=== PATIENT | male | born 1945 | race Caucasian/White ===

== ENCOUNTER 2019-05-21 16:50 | Emergency (ER) | payer MEDICARE, OTHER ==
[2019-05-21 17:07] VITALS: BP 184/77; PULSE 91
[2019-05-21] MEDS ORDERED: Ondansetron 4 MG Tab.DIS PO ONE (17:11)
[2019-05-21] MEDS ORDERED: Sodium Chloride 0.9% 10 ML Syringe FLUSH PRN (17:17)
[2019-05-21] MEDS ORDERED: Sodium Chloride 0.9% 1,000 ML IV SCH (17:30)
--- NOTE | 2019-05-21 17:37 | EDM.PDOC ---
ED HPI GENERAL MEDICAL PROBLEM - General Chief Complaint: Abdominal Pain Stated Complaint: CONSTIPATION Time Seen by Provider: 05/21/19 17:04 Source of Information: Reports: Patient, RN Notes Reviewed History Limitations: Reports: No Limitations - History of Present Illness INITIAL COMMENTS - FREE TEXT/NARRATIVE: Patient is a 73-year-old male who presents to the ED for the evaluation of his constipation. The patient states that he had a prophylactic circumcision done on May 12, done by Dr. Man, urologist at [facility], and has been taking hydrocodone/acetaminophen for the pain. The patient notes that he has not been taking the medication for around the past 4 to 5 days, as he has had some nausea and vomiting when he tries to eat or drink much of anything. Patient notes that because of this he has not really eaten or drank much over the last few days. He states that roughly 2 days into his postop recovery, he started developing symptoms of constipation. He states that he has to strain really hard to get any sort of bowel movement, but he does not have not much for a bowel movement. He states that he has not had a real good bowel movement in last 10 days. He states that he is still able to pass gas. He is not complaining of any fevers or chills, or redness at the site. He states that he is dribbling urine a little bit since the surgery as well. He is not complaining of any focal abdominal pain. Lower Abdominal Pain Score (Numeric/FACES): 5 - Related Data Allergies Allergy/AdvReac Type Severity Reaction Status Date / Time shellfish derived Allergy Nausea Verified 05/21/19 17:08 Home Meds: Home Meds Acetaminophen/HYDROcodone [[place] 325-5 MG] 1 - 2 tab PO Q6HR 05/21/19 [History] Lisinopril [Zestril] 40 mg PO DAILY 05/21/19 [History] Past Medical History Cardiovascular History: Reports: Hypertension - Infectious Disease History Infectious Disease History: Reports: Chicken Pox - Past Surgical History Male Surgical History: Reports: Other (See Below) Other Male Surgeries/Procedures: circumcision May 12 2019 Social & Family History - Family History Family Medical History: Noncontributory - Tobacco Use Smoking Status *Q: Never Smoker - Caffeine Use Caffeine Use: Reports: Coffee, Tea - Recreational Drug Use Recreational Drug Use: No ED ROS GENERAL - Review of Systems Review Of Systems: See Below Constitutional: Denies: Fever, Chills Respiratory: Denies: Shortness of Breath Cardiovascular: Denies: Chest Pain GI/Abdominal: Reports: Constipation, Decreased Appetite, Flatus, Nausea, Vomiting. Denies: Abdominal Pain, Black Stool, Bloody Stool, Diarrhea : Denies: Dysuria, Frequency, Urgency Skin: Denies: Erythema, Change in Color ED EXAM, GI/ABD - Physical Exam Exam: See Below Exam Limited By: No Limitations General Appearance: Alert, WD/WN, No Apparent Distress Eyes: Bilateral: Normal Appearance Throat/Mouth: Normal Inspection, Normal Lips, Normal Teeth, Normal Gums, Normal Oropharynx, Normal Voice, No Airway Compromise Head: Atraumatic, Normocephalic Neck: Normal Inspection Respiratory/Chest: No Respiratory Distress, Lungs Clear, Normal Breath Sounds, No Accessory Muscle Use, Chest Non-Tender Cardiovascular: Normal Peripheral Pulses, Regular Rate, Rhythm, No Murmur GI/Abdominal Exam: Soft, No Distention, Tender (generalized tenderness), Abnormal Bowel Sounds (hypoactive) (Male) Exam: Deferred Extremities: Normal Inspection, Normal Capillary Refill Neurological: Alert, Oriented, Normal Cognition, No Motor/Sensory Deficits Psychiatric: Normal Affect, Normal Mood Skin Exam: Warm, Dry, Intact, Normal Color, No Rash Course - Vital Signs Last Recorded V/S: Last Vital Signs Temp 98.2 F 05/21/19 17:01 Pulse 91 05/21/19 17:01 Resp 18 05/21/19 17:01 BP 184/77 H 05/21/19 17:01 Pulse Ox 98 05/21/19 17:01 - Orders/Labs/Meds Orders: Active Orders 24 hr Category Date Time Status Insert Urinary Catheter [OM.PC] Stat Care 05/21/19 18:50 Ordered Peripheral IV Care [RC] . DIRECTED Care 05/21/19 17:17 Active Urinary Catheter Assessment [RC] ASDIRECTED Care 05/21/19 18:29 Active Urinary Catheter Assessment [RC] ASDIRECTED Care 05/21/19 18:54 Active Urinary Catheter Insertion [Insert Urinary Catheter] [ Care 05/21/19 18:15 Ordered OM.PC] Stat Abdomen 2V AP Flat Upright [CR] Stat Exams 05/21/19 17:10 Taken CULTURE BLOOD [BC] Stat Lab 05/21/19 19:10 Received CULTURE BLOOD [BC] Stat Lab 05/21/19 19:27 Received Blood Culture x2 Reflex Set [OM.PC] Stat Oth 05/21/19 18:53 Ordered Peripheral IV Insertion Adult [OM.PC] Stat Oth 05/21/19 17:17 Ordered Labs: Laboratory Tests 05/21/19 05/21/19 05/21/19 Range/Units 17:45 17:45 18:20 WBC 11.53 H (4.23-9.07) K/mm3 RBC 4.13 L (4.63-6.08) M/mm3 Hgb 12.3 L (13.7-17.5) gm/dl Hct 34.6 L (40.1-51.0) % MCV 83.8 (79.0-92.2) fl MCH 29.8 (25.7-32.2) pg MCHC 35.5 (32.2-35.5) g/dl RDW Std Deviation 36.7 (35.1-43.9) fL Plt Count 288 (163-337) K/mm3 MPV 8.8 L (9.4-12.3) fl Neutrophils % (Manual) 89 H (40-60) % Band Neutrophils % 0 (0-10) % Lymphocytes % (Manual) 7 L (20-40) % Atypical Lymphs % 0 % Monocytes % (Manual) 3 (2-10) % Eosinophils % (Manual) 1 (0.8-7.0) % Basophils % (Manual) 0 L (0.2-1.2) Platelet Estimate Adequate RBC Morph Comment Normal Sodium 125 L (136-145) mEq/L Potassium 4.8 (3.5-5.1) mEq/L Chloride 87 L (98-107) mEq/L Carbon Dioxide 11 L (21-32) mEq/L Anion Gap 31.8 H (5-15) BUN 137 H (7-18) mg/dL Creatinine 16.0 H (0.7-1.3) mg/dL Est Cr Clr Drug Dosing 4.17 mL/min Estimated GFR (MDRD) 3 (>60) mL/min BUN/Creatinine Ratio 8.6 L (14-18) Glucose 100 (83-115) mg/dL Lactic Acid (0.4-2.0) mmol/L Calcium 8.3 L (8.5-10.1) mg/dL Total Bilirubin 0.5 (0.2-1.0) mg/dL AST 14 L (15-37) U/L ALT 23 (16-63) U/L Alkaline Phosphatase 102 (46-116) U/L Total Protein 6.7 (6.4-8.2) g/dl Albumin 2.9 L (3.4-5.0) g/dl Globulin 3.8 gm/dL Albumin/Globulin Ratio 0.8 L (1-2) Urine Color [place] H (Yellow) Urine Appearance Slt cloudy H (Clear) Urine pH 5.5 (5.0-8.0) Ur Specific [place] 1.015 (1.005-1.030) Urine Protein 2+ H (Negative) Urine Glucose (UA) Negative (Negative) Urine Ketones Negative (Negative) Urine Occult Blood 3+ H (Negative) Urine Nitrite Negative (Negative) Urine Bilirubin Negative (Negative) Urine Urobilinogen 0.2 (0.2-1.0) Ur Leukocyte Esterase 1+ H (Negative) Urine RBC >100 H (0-5) /hpf Urine WBC 5-10 H (0-5) /hpf Ur Squamous Epith Cells 0-5 (0-5) /hpf Urine Bacteria Few (FEW) /hpf Urine Mucus Not seen (FEW) /hpf 05/21/19 Range/Units 19:10 WBC (4.23-9.07) K/mm3 RBC (4.63-6.08) M/mm3 Hgb (13.7-17.5) gm/dl Hct (40.1-51.0) % MCV (79.0-92.2) fl MCH (25.7-32.2) pg MCHC (32.2-35.5) g/dl RDW Std Deviation (35.1-43.9) fL Plt Count (163-337) K/mm3 MPV (9.4-12.3) fl Neutrophils % (Manual) (40-60) % Band Neutrophils % (0-10) % Lymphocytes % (Manual) (20-40) % Atypical Lymphs % % Monocytes % (Manual) (2-10) % Eosinophils % (Manual) (0.8-7.0) % Basophils % (Manual) (0.2-1.2) Platelet Estimate RBC Morph Comment Sodium (136-145) mEq/L Potassium (3.5-5.1) mEq/L Chloride (98-107) mEq/L Carbon Dioxide (21-32) mEq/L Anion Gap (5-15) BUN (7-18) mg/dL Creatinine (0.7-1.3) mg/dL Est Cr Clr Drug Dosing mL/min Estimated GFR (MDRD) (>60) mL/min BUN/Creatinine Ratio (14-18) Glucose (83-115) mg/dL Lactic Acid 0.6 (0.4-2.0) mmol/L Calcium (8.5-10.1) mg/dL Total Bilirubin (0.2-1.0) mg/dL AST (15-37) U/L ALT (16-63) U/L Alkaline Phosphatase (46-116) U/L Total Protein (6.4-8.2) g/dl Albumin (3.4-5.0) g/dl Globulin gm/dL Albumin/Globulin Ratio (1-2) Urine Color (Yellow) Urine Appearance (Clear) Urine pH (5.0-8.0) Ur Specific [place] (1.005-1.030) Urine Protein (Negative) Urine Glucose (UA) (Negative) Urine Ketones (Negative) Urine Occult Blood (Negative) Urine Nitrite (Negative) Urine Bilirubin (Negative) Urine Urobilinogen (0.2-1.0) Ur Leukocyte Esterase (Negative) Urine RBC (0-5) /hpf Urine WBC (0-5) /hpf Ur Squamous Epith Cells (0-5) /hpf Urine Bacteria (FEW) /hpf Urine Mucus (FEW) /hpf Meds: Medications Discontinued Medications Generic Name Dose Route Start Last Admin Trade Name Freq PRN Reason Stop Dose Admin Sodium Chloride 1,000 mls @ 999 mls/hr 05/21/19 17:30 05/21/19 17:48 Normal Saline IV 999 mls/hr ASDIRECTED TAMMY Administration Ondansetron HCl 4 mg 05/21/19 17:11 05/21/19 17:48 Zofran Odt PO 05/21/19 17:12 4 mg ONETIME ONE Administration Sodium Chloride 10 ml 05/21/19 17:17 05/21/19 17:48 Saline Flush FLUSH 10 ml ASDIRECTED PRN Administration Keep Vein Open - Re-Assessments/Exams Free Text/Narrative Re-Assessment/Exam: 05/21/19 17:37 Patient presents to the ED for the evaluation of his constipation after surgery. I did order a flat and upright abdominal x-rays to evaluate for constipation versus blockage initially. After talking with the patient, he states he has not been eating or drinking very well, so I have ordered an IV for him, get some IV fluids and check some labs. 05/21/19 19:09 The nurse did inform me that the patient had about 2000 mils of fluid in his bladder that she did evacuate by a quick cath. The patient's white blood cell count is mildly elevated 11,000, with an 89% neutrophil count and 0 bands. Metabolically sodium is low at 125, carbon dioxide is low at 11. BUN is elevated at over 130, creatinine is 16, GFR is low at 3. Patient's potassium is okay however. At this time I did discuss the labs with Dr. Monreal, and we are in agreement that this does look like an obstructive acute renal failure uropathy type situation. I did call [place] [facility] for further management and possible transfer, housing manager Dr. Juarez was okay with the transfer but wanted me to talk with her hospitalist, Dr. Enriquez, and Dr. Enriquez would like me to consult with our hospitalist, Dr. Benavides, for admission here as she states management of this would be to simply place a [place] and recheck his labs in the morning, if his creatinine decreases by half then he is okay to stay, if it does not decrease by half then he would need transfer for evaluation by nephrology. At this time I did call Dr. Benavides and talked with him about the patient and would like the patient transferred to [facility] for further management. Departure - Departure Time of Disposition: 19:26 Disposition: DC/Tfer to Acute Hospital 02 Condition: Fair Clinical Impression: Acute renal failure due to procedure - Discharge Information *PRESCRIPTION DRUG MONITORING PROGRAM REVIEWED*: No *COPY OF PRESCRIPTION DRUG MONITORING REPORT IN PATIENT [place]: No Referrals: Carmelita Diaz MD [Primary Care Provider] - Forms: ED Department Discharge Sepsis Event Note - Evaluation Sepsis Screening Result: No Definite Risk - Focused Exam Vital Signs: Vital Signs Temp Pulse Resp BP Pulse Ox 05/21/19 17:01 98.2 F 91 18 184/77 H 98 Date Exam was Performed: 05/21/19 Time Exam was Performed: 21:27 - My Orders Last 24 Hours: My Active Orders 05/21/19 17:10 Abdomen 2V AP Flat Upright [CR] Stat 05/21/19 17:17 Peripheral IV Care [RC] . DIRECTED Peripheral IV Insertion Adult [OM.PC] Stat 05/21/19 18:15 Urinary Catheter Insertion [Insert Urinary Catheter] [OM.PC] Stat 05/21/19 18:29 Urinary Catheter Assessment [RC] ASDIRECTED 05/21/19 18:50 Insert Urinary Catheter [OM.PC] Stat 05/21/19 18:53 Blood Culture x2 Reflex Set [OM.PC] Stat 05/21/19 18:54 Urinary Catheter Assessment [RC] ASDIRECTED 05/21/19 19:10 CULTURE BLOOD [BC] Stat 05/21/19 19:27 CULTURE BLOOD [BC] Stat - Assessment/Plan Last 24 Hours: My Active Orders 05/21/19 17:10 Abdomen 2V AP Flat Upright [CR] Stat 05/21/19 17:17 Peripheral IV Care [RC] . DIRECTED Peripheral IV Insertion Adult [OM.PC] Stat 05/21/19 18:15 Urinary Catheter Insertion [Insert Urinary Catheter] [OM.PC] Stat 05/21/19 18:29 Urinary Catheter Assessment [RC] ASDIRECTED 05/21/19 18:50 Insert Urinary Catheter [OM.PC] Stat 05/21/19 18:53 Blood Culture x2 Reflex Set [OM.PC] Stat 05/21/19 18:54 Urinary Catheter Assessment [RC] ASDIRECTED 05/21/19 19:10 CULTURE BLOOD [BC] Stat 05/21/19 19:27 CULTURE BLOOD [BC] Stat
--- NOTE | 2019-05-22 11:22 | CR ---
Abdomen: Supine view of the abdomen was obtained. Comparison: No previous study. Scattered gas within small bowel is noted with several air-fluid levels. No small bowel dilatation is seen and this bowel gas pattern is felt to be incidental. Calcification is noted within the right side of the pelvis compatible with phlebolith. Calcification is noted overlying the lower pole of the left kidney most likely representing nonobstructing stone. Bony structures shows mild degenerative change within the spine. No free air is identified. Impression: 1. Findings as noted above. 2. Nothing acute is appreciated. Diagnostic code #2 This report was dictated in [place] Standard Time
== END 2019-05-21 19:45 ==
LOC: JD.ED 16:50
DX: N99.0 Postprocedural (acute) (chronic) kidney failure (principal); N17.9 Acute kidney failure, unspecified; I10 Essential (primary) hypertension; Z91.013 Allergy to seafood; Z79.899 Other long term (current) drug therapy
CPT/HCPCS: 36415; 51702; 74019; 80053; 81001; 83605; 85007; 85027; 87040; 96360; 99285; A9270; J7030; 99284